=== PATIENT | male | born 1965 | race American Indian/Alaskan Native ===

== ENCOUNTER 2017-04-26 23:53 | Emergency (ER) | payer SELFPAY ==
[2017-04-26 23:54] VITALS: BMI 30.3
[2017-04-27] MEDS ORDERED: Albuterol-Ipratrop 3 mg / 0.5 (3 ml) UD INH STA (00:11)
--- NOTE | 2017-04-27 00:13 | C.PDOC ---
History Of Present Illness 51yo male, presents to ER with complaints of shortness of breath for the past hour. Patient reports he has had a productive cough with yellow sputum. He also reports having "hot flashes" today. He admits to drinking 2 beers earlier today but denies any drug usage. He denies any fever, chest pain, abdominal pain. No other complaints. Time Seen by Provider: 04/27/17 00:19 Chief Complaint (Nursing): Shortness Of Breath History Per: Patient History/Exam Limitations: no limitations Onset/Duration Of Symptoms: Hrs (1) Current Symptoms Are (Timing): Still Present Associated Symptoms: Productive Cough Past Medical History Reviewed: Historical Data, Nursing Documentation, Vital Signs Vital Signs: Last Vital Signs Temp 98.4 F 04/27/17 05:08 Pulse 77 04/27/17 05:08 Resp 20 04/27/17 05:08 BP 162/70 H 04/27/17 05:08 Pulse Ox 96 04/27/17 05:08 - Medical History PMH: No Chronic Diseases Surgical History: No Surg Hx - [facility] Procedures OTHER LOCAL DESTRUC SKIN (10/16/13) Family History: States: Unknown Family Hx - Social History Hx Tobacco Use: Yes Hx Alcohol Use: Yes Hx Substance Use: No - Immunization History Hx Tetanus Toxoid Vaccination: No Hx Influenza Vaccination: No Hx Pneumococcal Vaccination: No Review Of Systems Except As Marked, All Systems Reviewed And Found Negative. Constitutional: Positive for: Other (hot flashes). Negative for: Fever, Chills Cardiovascular: Negative for: Chest Pain Respiratory: Positive for: Cough, Shortness of Breath, Sputum Gastrointestinal: Negative for: Abdominal Pain Physical Exam - Physical Exam Appears: Non-toxic, No Acute Distress Skin: Normal Color, Warm, Dry Head: Atraumatic, Normacephalic Eye(s): bilateral: Normal Inspection, PERRL, EOMI Oral Mucosa: Moist Teeth: Edentulous Throat: Normal, No Erythema, No Exudate Neck: Normal ROM, Supple Chest: Symmetrical Cardiovascular: Rhythm Regular Respiratory: Normal Breath Sounds, No Wheezing Gastrointestinal/Abdominal: Bowel Sounds, Soft Extremity: Normal ROM, Swelling (swelling noted to right hand, patient states he has a fracture and is following up with an orthopedist) Neurological/Psych: Oriented x3, Normal Speech, Normal Cognition ED Course And Treatment - Laboratory Results Result Diagrams: 04/27/17 01:57 03/23/18 01:57 ECG: Interpreted By Me, Viewed By Me ECG Rhythm: Sinus Rhythm ECG Interpretation: Normal Interpretation Of ECG: no ST/T wave changes Rate From EC O2 Sat by Pulse Oximetry: 98 (RA) Pulse Ox Interpretation: Normal Medical Decision Making Medical Decision Making: Impression: Shortness of breath Plan: -- CXR -- EKG -- Duoneb 3ml INH Time: 0110 Patient reports right sided chest pain. CXR reviewed and indicative of dextrocardia. CMP, CBC, Troponin and DDimer ordered. Time: 0234 Labs reviewed, DDimer elevated. CTA Chest ordered. Time: 0440 CTA Chest FINDINGS: No pulmonary embolism identified although evaluation in the most distal branches is slightly suboptimal due to patient motion and bolus timing. No aortic dissection or aneurysm. No pleural or pericardial effussions. Small amount of haziness in the lung bases likely dependent atelectasis. No focal infiltrates or pulmonary consolidation. Gastric dilation with ingested material. IMPRESSION: No acute findings. Disposition - Disposition Referrals: [facility] [Outside] Disposition: HOME/ ROUTINE Disposition Time: 06:05 Condition: GOOD Instructions: Shortness of Breath (Dyspnea) Forms: [facility] (Nepali) Print Language: POLISH - Clinical Impression Clinical Impression: Dyspnea, Chronic congestive heart failure - Scribe Statement The provider has reviewed the documentation as recorded by the Scribe (Katherine Sherman) Provider Attestation: All medical record entries made by the Scribe were at my direction and personally dictated by me. I have reviewed the chart and agree that the record accurately reflects my personal performance of the history, physical exam, medical decision making, and the department course for this patient. I have also personally directed, reviewed, and agree with the discharge instructions and disposition.
[2017-04-27] MEDS ORDERED: Albuterol-Ipratrop 3 mg / 0.5 (3 ml) UD ONE (00:37)
[2017-04-27 02:00] LABS: BASO % 1.1 % (0.0-2.0); EOS # 0.2 K/uL (0.0-0.7); EOS % 4.7 % (0.0-4.0); HEMOGLOBIN 12.8 g/dL (12.0-18.0); LYMPH % 24.5 % (20.0-40.0); MEAN CELL VOLUME 90.5 fL (80.0-94.0); MEAN CORPUSCULAR HEMOGLOBIN 29.6 pg (27.0-31.0); MEAN CORPUSCULAR HGB CONC 32.7 g/dL (33.0-37.0); MEAN PLATELET VOLUME 8.6 fL (7.2-11.7); MONO # 0.4 K/uL (0.0-0.8); MONO % 10.5 % (0.0-10.0); NEUT # 2.4 K/uL (1.8-7.0); NEUT % 59.2 % (50.0-75.0); RBC 4.33 Mil/uL (4.40-5.90); RED CELL DISTRIBUTION WIDTH 14.9 % (11.5-14.5); WHITE BLOOD COUNT 4.1 K/uL (4.8-10.8)
[2017-04-27 02:15] LABS: ALB/GLOB RATIO 1.1 (1.0-2.1); ALBUMIN 3.6 g/dL (3.5-5.0); ALT/SGPT 30 U/L (21-72); AST/SGOT 21 U/L (17-59); BLOOD UREA NITROGEN 13 mg/dL (9-20); CALCIUM 8.6 mg/dl (8.6-10.4); GFR AFRICAN-AMERICAN > 60; GFR NON-AFRICAN AMERICAN > 60
[2017-04-27] MEDS ORDERED: Iodixanol 320 MG/ML 100 ML BOTTLE IV ONE (02:41)
--- NOTE | 2017-04-27 04:39 | CT ---
EXAM: CT Angiography Chest With Intravenous Contrast EXAM DATE/TIME: 04/27/2017 2:34 AM CLINICAL HISTORY: 51 years old, male; Pain; Chest pain; Additional info: SOB TECHNIQUE: Axial computed tomographic angiography images of the chest with intravenous contrast using pulmonary embolism protocol. All CT scans at this facility use one or more dose reduction techniques, viz.: automated exposure control; ma/kV adjustment per patient size (including targeted exams where dose is matched to indication; i.e. head); or iterative reconstruction technique. MIP reconstructed images were created and reviewed. Coronal and sagittal reformatted images were created and reviewed. CONTRAST: 100 mL of [id number] administered intravenously. COMPARISON: No relevant prior studies available. FINDINGS: No pulmonary embolism identified although evaluation in the most distal branches is slightly suboptimal due to patient motion and bolus timing. No aortic dissection or aneurysm. No pleural or pericardial effussions. Small amount of haziness in the lung bases likely dependent atelectasis. No focal infiltrates or pulmonary consolidation. Gastric dilation with ingested material. IMPRESSION: No acute findings.
[2017-04-27 05:09] VITALS: BP 162/70; PULSE 77; RESP 20; TEMP 98.4
[2017-04-27 06:06] VITALS: O2SAT 98
--- NOTE | 2017-04-27 08:32 | RAD ---
HISTORY: COMPARISON: 04/20/2014. TECHNIQUE: Chest PA and lateral FINDINGS: LINES AND TUBES: None. LUNG AND PLEURA: The lungs are well inflated and clear. HEART AND MEDIASTINUM: The heart is not enlarged. The hilar and mediastinal contours are within normal limits. SKELETAL STRUCTURES: The bony structures are within normal limits for the patient's age. VISUALIZED UPPER ABDOMEN: Normal. OTHER FINDINGS: None. IMPRESSION: No active pulmonary disease.
--- NOTE | 2017-04-27 10:08 | CARD ---
APPROVED REPORT EKG Measurement Heart [id number] <Conclusion> Normal sinus rhythm Normal ECG
== END 2017-04-27 05:15 | disposition home or self-care (01) ==
LOC: C.ER 23:53
DX: I50.9 Heart failure, unspecified (principal); R06.00 Dyspnea, unspecified
CPT/HCPCS: 71046; 71275; 80053; 84484; 85025; 85378; 93005; 99285; Q9967